=== PATIENT | female | born 1985 | race Hispanic/Latino ===

== ENCOUNTER 2021-01-03 16:02 | Inpatient (IN) | payer OTHER, SELFPAY ==
[~2021-01-03 16:02] MED LIST: EPINEPHrine 1 MG/10 ML Abboject SYRINGE ONE; Rocuronium Bromide 10 MG/ML (10ML VIAL) ONE
[2021-01-03 16:26] LABS: Hemoglobin 11.6 g/dL (12.0-16.0); Mean Corpuscular HGB CONC 32.4 g/dL (32.0-36.0); Mean Corpuscular Hemoglobin 29.8 pg (27.0-31.0); Mean Corpuscular Volume 92.1 fL (78.0-98.0); Mean Platelet Volume 8.5 fL (7.4-10.4); Platelet Count 112 thou/uL (130-400); RBC Distribution Width 12.2 % (11.5-14.5)
[2021-01-03 16:33] LABS: INR-International Normal Ratio 3.1; Prothrombin Time 32.6 sec (12.0-14.7)
[2021-01-03] MEDS ORDERED: Sodium Chloride 0.9% 60 ML ONE (16:34)
[2021-01-03] MEDS ORDERED: Heparin 10,000 UNITS/ 10 ML VIAL ONE (16:34)
[2021-01-03 16:37] LABS: PTT 117.4 sec (22.9-36.1)
[2021-01-03 16:44] LABS: Band 12 % (5-11); Burr Cells SLIGHT = 2-5 cells (100X) (0-1/hpf); Eosinophils 3 % (0-10); Lymphocytes 24 % (21-51); MDiff Complete? YES; Monocytes 2 % (0-10); Neutrophil 53 % (42-75); Platelet Morphology Comment Appears Decreased; Polychromasia SLIGHT = 2-3 cells (100X) (0-2/hpf); Reactive Lymphocytes 6 % (0-10)
[2021-01-03 16:48] LABS: ALT (SGPT) 612 U/L (8-55); AST (SGOT) 541 U/L (5-34); Albumin 2.5 g/dL (3.5-5.0); Alkaline Phosphatase 93 U/L (40-110); Anion Gap 18 mmol/L (10-20); BUN (Urea Nitrogen) 12 mg/dL (7.0-18.7); Bilirubin, Total 0.2 mg/dL (0.2-1.2); Calc. Creatinine Clearance 0 mL/min (70-130); Chloride 116 mmol/L (98-107); Glucose 149 mg/dL (70-105); Potassium 4.9 mmol/L (3.5-5.1); Protein, Total 4.5 g/dL (6.0-8.3); Sodium 138 mmol/L (136-145)
[2021-01-03 16:53] LABS: BHCG - Serum Negative (NEGATIVE); Carbon Dioxide 9 mmol/L (22-29); Lactic Acid 10.5 mmol/L (0.5-2.2); Pregs Control Background? CLEAR/WHITE (CLR/WHITE); Pregs Control Bar Appear? YES (CONTROL BAR)
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
--- NOTE | 2021-01-03 16:54 | RAD ---
XR Chest 1 View Portable History: Injury Comparison: None. Findings: Endotracheal tip just above the hermilo approximately 11 mm. Possible right pneumothorax wit h dilatation of the right minor fissure. Possible opacity projecting of the right middle lobe may reflect pulmonary contusion or atelectasis. Mild widening of the paratracheal soft tissues. Impression: 1. Endotracheal tube tip above the hermilo 11 mm. 2. Possible right pneumothorax, anterior as well as interposed within the right minor fissure. 3. Widened right paratracheal soft tissues should be evaluated with CT. 4. Either atelectasis or possible contusion right middle lobe.
[2021-01-03] MEDS ORDERED: EPINEPHrine 1 MG/ML AMP ONE (17:14)
[2021-01-03] MEDS ORDERED: Sodium Bicarbonate 2.5 MEQ/5 ML VIAL ONE (17:18)
[2021-01-03] MEDS ORDERED: Sodium Bicarb 50 MEQ/50 ML Abboject 8.4% SYRINGE ONE (17:19)
[2021-01-03 17:31] LABS: Calcium Greater than 17.0 mg/dL (7.8-10.44)
[2021-01-03] MEDS ORDERED: Norepinephrine 4 MG/4 ML VIAL ONE (17:57)
[2021-01-03] MEDS ORDERED: Vasopressin 20 UNIT, Admixture Fee 1 EACH in Sodium Chloride 0.9% 50 ML IV SCH (19:00)
[2021-01-03 19:08] LABS: Actual Bicarbonate (HCO3a) 12.4 mEq/L (22-28); Base Excess (BEa) -15.6 mEq/L (-2.0 to +3.0); CO2 Tension 36.9 mmHg (35.0-45.0); Calcium, Ionized (arterial) 0.98 mmol/L (1.12-1.30); Carboxyhemoglobin (COHb) 0.6 gm% (0.0-3.0); Hemoglobin (Hb) 12.6 g/dL (12.0-16.0); Potassium - ABG Lab 3.62 mmol/L (3.70-5.30)
[2021-01-03] MEDS ORDERED: Sodium Bicarbonate 150 MEQ in Dextrose 5% in Water 1,000 ML IV SCH (19:15)
[2021-01-03] MEDS ORDERED: Calcium Chloride 1 GM/10 ML Abboject SYRINGE IVP SCH (19:15)
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
[2021-01-03 19:28] LABS: #Eosinphils 0.1 thou/uL (0.0-0.7); #Lymphocytes 2.1 thou/uL (1.20-3.40); #Monocytes 0.3 thou/uL (0.11-0.59); %Eosinophils 1.7 % (0.0-10.0); %Lymphocytes 24.6 % (21.0-51.0); %Monocytes 3.6 % (0.0-10.0); %Neutrophils 70.1 % (42.0-75.0); Hemoglobin 9.8 g/dL (12.0-16.0); Mean Corpuscular HGB CONC 33.8 g/dL (32.0-36.0); Mean Corpuscular Hemoglobin 30.5 pg (27.0-31.0); Mean Corpuscular Volume 90.4 fL (78.0-98.0); Mean Platelet Volume 7.8 fL (7.4-10.4); Platelet Count 56 thou/uL (130-400); RBC Distribution Width 13.1 % (11.5-14.5); Red Blood Cell (RBC) Count 3.21 mill/uL (4.20-5.40); White Blood Cell (WBC) Count 8.5 thou/uL (4.8-10.8)
[2021-01-03 19:31] LABS: INR-International Normal Ratio 1.8; Prothrombin Time 21.6 sec (12.0-14.7)
[2021-01-03 19:35] LABS: PTT 117.9 sec (22.9-36.1)
[2021-01-03 19:36] LABS: Fibrinogen 154 mg/dL (253-463)
[2021-01-03 19:37] LABS: O2 Tension (PaO2), arterial 53.6 mmHg (80.0-100.0); Puncture Site Arterial Line; pH, Arterial 7.15 (7.35-7.45)
[2021-01-03 19:38] LABS: ALV-art Gradient 613.275 mmHg (0-20)
[2021-01-03 19:42] LABS: Burr Cells SLIGHT = 2-5 cells (100X) (0-1/hpf); MDiff Complete? YES; Platelet Morphology Comment Appears Decreased; Polychromasia SLIGHT = 2-3 cells (100X) (0-2/hpf)
[2021-01-03 19:49] LABS: D-Dimer Test Greater than 20.00 *mcg/mL (0.27-0.43)
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
== END 2021-01-03 19:25 | disposition expired | DRG 957 ==
LOC: ERS 16:02 → SDC 16:30 → IMCU/EMU 18:43
PROVIDERS: ADMIT Specialist; ATTEND Specialist
PROC: 07BP0ZZ Excision of Spleen, Open Approach (ICD-10-PCS; principal; 2021-01-03)
PROC: 0FQ20ZZ Repair Left Lobe Liver, Open Approach (ICD-10-PCS; 2021-01-03)
PROC: 0FQ10ZZ Repair Right Lobe Liver, Open Approach (ICD-10-PCS; 2021-01-03)
PROC: 0BH17EZ Insertion of Endotracheal Airway into Trachea, Via Natural or Artificial Opening (ICD-10-PCS; 2021-01-03)
PROC: 5A1935Z Respiratory Ventilation, Less than 24 Consecutive Hours (ICD-10-PCS; 2021-01-03)
PROC: 02HV33Z Insertion of Infusion Device into Superior Vena Cava, Percutaneous Approach (ICD-10-PCS; 2021-01-03)
PROC: 30233L1 Transfusion of Nonautologous Fresh Plasma into Peripheral Vein, Percutaneous Approach (ICD-10-PCS; 2021-01-03)
PROC: 30233N1 Transfusion of Nonautologous Red Blood Cells into Peripheral Vein, Percutaneous Approach (ICD-10-PCS; 2021-01-03)
PROC: 30233R1 Transfusion of Nonautologous Platelets into Peripheral Vein, Percutaneous Approach (ICD-10-PCS; 2021-01-03)
PROC: 30233M1 Transfusion of Nonautologous Plasma Cryoprecipitate into Peripheral Vein, Percutaneous Approach (ICD-10-PCS; 2021-01-03)
PROC: 30233K1 Transfusion of Nonautologous Frozen Plasma into Peripheral Vein, Percutaneous Approach (ICD-10-PCS; 2021-01-03)
DX: T79.4XXA Traumatic shock, initial encounter (principal); S32.431A Displaced fracture of anterior column [iliopubic] of right acetabulum, initial encounter for closed fracture; J96.00 Acute respiratory failure, unspecified whether with hypoxia or hypercapnia; S36.899A Unspecified injury of other intra-abdominal organs, initial encounter; R40.2112 Coma scale, eyes open, never, at arrival to emergency department; R40.2312 Coma scale, best motor response, none, at arrival to emergency department; R40.2212 Coma scale, best verbal response, none, at arrival to emergency department; S32.592A Other specified fracture of left pubis, initial encounter for closed fracture; S32.119A Unspecified Zone I fracture of sacrum, initial encounter for closed fracture; S32.129A Unspecified Zone II fracture of sacrum, initial encounter for closed fracture; D62 Acute posthemorrhagic anemia; S36.119A Unspecified injury of liver, initial encounter; S36.09XA Other injury of spleen, initial encounter; G93.1 Anoxic brain damage, not elsewhere classified; S09.90XA Unspecified injury of head, initial encounter; I46.8 Cardiac arrest due to other underlying condition; I49.9 Cardiac arrhythmia, unspecified; V49.59XA Passenger injured in collision with other motor vehicles in traffic accident, initial encounter
CPT/HCPCS: 36430; 51702; 71045; 72170; 80053; 82805; 83605; 84703; 85025; 85379; 85384; 85610; 85730; 86850; 86900; 86901; 92950; 94002; 94760; 96374; G0390; J0171; J1644; J7070; P9012; P9016; P9035; P9059